=== PATIENT | female | born 1970 | race Hispanic/Latino ===

== ENCOUNTER → 2017-06-19 | Outpatient (CLI) | payer MEDICAID ==
[~2017-06-19] MED LIST: ALBU8.5H8 IH; ALEN70TA47 PO; BISA-72 PO; BUDE10.2 IH; ERGO500014 PO; ESOM40CA PO; EXCEES PO; FLUT9.9S16 NS; GABA-529 PO; MECL12.585 PO; MONT10TA24 PO; MULT-1296 PO; SERT50TA PO; SOLI10TA PO; TIOT4MIS5 IH; TRAM-355 PO
== END | disposition home or self-care (01) ==
LOC: RAH 08:51
PROVIDERS: ATTEND Internal Medicine
DX: R13.10 Dysphagia, unspecified (principal); K21.9 Gastro-esophageal reflux disease without esophagitis
CPT/HCPCS: G8996; G8997; G8998; 74230; 92611